=== PATIENT | male | born 1980 | race Two or more races ===

== ENCOUNTER 2017-05-26 13:57 | Emergency (ER) | payer SELFPAY ==
[~2017-05-26] VITALS: Ht 175.3 cm; Wt 92.9 kg
[2017-05-26 14:05] VITALS: BP 107/72
[2017-05-26 14:29] LABS: HEMOGLOBIN 15.2 G/DL (12.5-16.6); MCH 31.8 PG (29.0-34.0); MCHC 35.3 G/DL (30.0-36.0); PLATELET COUNT 156 K/uL (156-360); RBC DIS.WIDTH-CV 11.9 % (11.8-14.6); RBC DIS.WIDTH-SD 39.2 % (39-53); RED BLOOD COUNT 4.78 M/uL (4.00-5.50)
[2017-05-26 14:36] LABS: CHLORIDE 110 mEq/L (99-109); SODIUM 138 mEq/L (136-147)
[2017-05-26 14:38] LABS: GLUCOSE 110 mg/dL (70-99)
[2017-05-26 14:42] LABS: CREATININE 1.4 mg/dL (0.6-1.3)
[2017-05-26 14:43] LABS: UREA NITROGEN (BUN) 15 mg/dL (9-23)
[2017-05-26 14:46] LABS: GFR ESTIMATE (CALCULATED) > 59 mL/min/ (58.99-99999)
== END 2017-05-26 15:36 | disposition left against medical advice (07) ==
LOC: EME 13:57
DX: R50.9 Fever, unspecified (principal); R53.1 Weakness; Z53.21 Procedure and treatment not carried out due to patient leaving prior to being seen by health care provider
CPT/HCPCS: 71046; 80048; 85027